=== PATIENT | male | born 1955 | race Caucasian/White ===

== ENCOUNTER 2016-07-11 15:14 | Day surgery (SDC) | payer MEDICARE ==
[2012-02-11 08:09] VITALS: BP 140/79
[~2016-07-11 15:14] MED LIST: DIPRIVAN 200 MG/20 ML IV ONE; Depo-Medrol 40 MG/ML IM ONE; KEFZOL 1 GM/50 ML PREMIX** 1 GM/50 ML IVPB IV ONE; Lactated Ringers 1,000 ML IV ONE; Sensorcaine 0.25% 10 ML IJ ONE; Sodium Chloride 0.9(Preservative Free) 10 ML IJ ONE
--- NOTE | 2016-07-11 17:20 | XRAY ---
19 seconds fluoroscopy time in surgery for Caudal CODEY.
--- NOTE | 2016-07-13 02:59 | XRAY ---
Indication: Caudal epidural steroid injection. Intraoperative fluoroscopy was provided for 19 seconds. A single lateral digital spot image is submitted for interpretation and demonstrates a posterior spinal needle with the tip projected over the expected epidural space just posterior to the mid aspect of the sacrum for epidural steroid injection. Correlate with intraoperative findings/report.
== END 2016-07-11 16:43 | disposition home or self-care (01) ==
LOC: SDC-PAIN 15:14
PROVIDERS: ATTEND Pain Medicine Interventional Pain Medicine
DX: M54.5 Low back pain (principal); M54.16 Radiculopathy, lumbar region; M51.36 Other intervertebral disc degeneration, lumbar region; Z79.891 Long term (current) use of opiate analgesic
CPT/HCPCS: 01992; 62323; 72020; 77003; J0690; J1030; J2704

== ENCOUNTER 2017-05-30 15:44 | Emergency (ER) | payer MEDICARE ==
--- NOTE | 2017-05-30 16:24 | ERPHSYRPT ---
- History of Present Illness Time Seen by Provider: 05/30/17 16:10 Source: patient Exam Limitations: no limitations Patient Subjective Stated Complaint: pt reports becoming lightheaded and feeling like he was going to pass out-evi [id number] pain-denies sob-pt has had similiar episodes in the past- reports bp of 70/45-waited a little bit and retook it with a bp of 60/47 Triage Nursing Assessment: pt arrived to ed pale warm and yie-jwvwv-bkwn of hearing but able to answer questions correctly-resp easy and nonlabored-moving all extremities equally and with ease Physician History: The patient is a 61-year-old male with his and family complaining that he had episodes today of low blood pressure. These low blood pressures were lasting at least 45 minutes. The began when he was sitting down. He denies shortness of breath, chest pain, or nausea. He is now beginning to feel better. Last blood pressure at home was 60/47. The family called his c unix developer, Dr. Correa, who wanted him to come either to [facility] or [place] [facility] for evaluation. The patient has a known cardiac history with coronary artery disease, cardiac stents, and a cardiac pacemaker/defibrillator. The patient had a blood draw this morning at 8:30, 6 hours ago, for pre-op labs. He is to have a cardiac catheterization done next Saturday. The patient also has a past medical history of high blood pressure and depression. Timing/Duration: today, hour(s) (2), sudden, improved Severity: moderate Modifying Factors: Improves With: nothing Associated Symptoms: weakness Allergies/Adverse Reactions: codeine [Codeine] Allergy (Verified 05/30/17 15:58) phenobarbital Allergy (Verified 05/30/17 15:58) Home Medications: Citalopram Hydrobromide [ceLEXa] 40 mg PO DAILY 11/23/15 [History] Carvedilol 3.125 mg [Coreg 3.125 MG] 0.5 tab PO BID 05/25/16 [History] Aspirin 81 gm Chew [Baby Aspirin 81 mg Chew] 81 mg PO DAILY 05/30/17 [ History] Clopidogrel Bisulfate [Clopidogrel] 75 mg PO DAILY 05/30/17 [History] Losartan Potassium [Losartan Potassium] 25 mg PO DAILY 05/30/17 [History] Hx Tetanus, Diphtheria Vaccination/Date Given: Yes Hx Influenza Vaccination/Date Given: No Hx Pneumococcal Vaccination/Date Given: No Immunizations Up to Date: Yes - Review of Systems Constitutional: Weakness Eyes: No Symptoms Ears, Nose, & Throat: No Symptoms Respiratory: No Cough, No Dyspnea Cardiac: No Chest Pain, No Edema, No Syncope Abdominal/Gastrointestinal: No Abdominal Pain, No Nausea, No Vomiting, No Diarrhea Genitourinary Symptoms: No Dysuria Musculoskeletal: No Back Pain, No Neck Pain Skin: No Rash Neurological: No Dizziness, No Focal Weakness, No Sensory Changes Psychological: No Symptoms Endocrine: No Symptoms Hematologic/Lymphatic: No Symptoms Immunological/Allergic: No Symptoms All Other Systems: Reviewed and Negative - Past Medical History Pertinent Past Medical History: Yes Neurological History: TIA ENT History: No Pertinent History Cardiac History: Coronary Artery Disease, High Cholesterol, Hypertension, Myocardial Infarction ([place]) Respiratory History: COPD, Sleep Apnea Endocrine Medical History: No Pertinent History Musculoskeletal History: Degenerative Disk Disease GI Medical History: No Pertinent History History: No Pertinent History Psycho-Social History: Anxiety Male Reproductive Disorders: No Pertinent History Other Medical History: Pacer/Defib - Past Surgical History Past Surgical History: Yes Neuro Surgical History: No Pertinent History Cardiac: Cardiac Catheterization, Cardiac Stent, Internal Defibrillator, Pacemaker Respiratory: No Pertinent History Gastrointestinal: No Pertinent History Genitourinary: No Pertinent History Musculoskeletal: Orthopedic Surgery Male Surgical History: No Pertinent History Other Surgical History: 15 stents placed. Elbow surgery. Tonsillectomy - Social History Smoking Status: Current every day smoker How long have you smoked: 45 Exposure to second hand smoke: No Drug Use: none Patient Lives Alone: No - Nursing Vital Signs Nursing Vital Signs: Initial Vital Signs Temperature 97.1 F 05/30/17 15:51 Pulse Rate 68 05/30/17 15:51 Respiratory Rate 18 05/30/17 15:51 Blood Pressure 114/56 05/30/17 15:51 O2 Sat by Pulse Oximetry 99 05/30/17 15:51 Pain Scale Pain Intensity 0 - Physical Exam General Appearance: no apparent distress, alert Eye Exam: PERRL/EOMI, eyes nml inspection Ears, Nose, Throat Exam: normal ENT inspection, TMs normal, pharynx normal, moist mucous membranes Neck Exam: normal inspection, non-tender, supple, full range of motion Respiratory Exam: normal breath sounds, lungs clear, No respiratory distress Cardiovascular Exam: regular rate/rhythm, normal heart sounds, normal peripheral pulses Gastrointestinal/Abdomen Exam: soft, normal bowel sounds, No tenderness, No mass Rectal Exam: not done Back Exam: normal inspection, normal range of motion, No CVA tenderness, No vertebral tenderness Extremity Exam: normal inspection, normal range of motion, pelvis stable Neurologic Exam: alert, oriented x 3, cooperative, normal mood/affect, nml cerebellar function, nml station & gait, sensation nml, No motor deficits Skin Exam: normal color, warm, dry, No rash Lymphatic Exam: No adenopathy SpO2 Interpretation: normal SpO2: 99 Oxygen Delivery: Room Air - Course EKG Interpreted by Me: RATE, Sinus Rhythm, NORMAL INTERVALS, NORMAL QRS, ST Elev (V1,V2), Other (no pacer spikes seen on EKG, Pacer spikes seen on previous EKG dated 02/11/12.) - Radiology Exams Chest X-ray Interpretation: Reviewed by me, Teleradiologist Report, Negative (stable nonacute chest per Dr Loo.) Ordered Tests: Active Orders 24 hr Category Date Time Status EKG-ER Only STAT Care 05/30/17 16:34 Active IV Insertion STAT Care 05/30/17 16:34 Active Pulse Oximetry (ED) STAT Care 05/30/17 16:34 Active CHEST 2 VIEWS (PA AND LAT) Stat Exams 05/30/17 16:34 Completed CBC W DIFF Stat Lab 05/30/17 16:56 Completed CMP Stat Lab 05/30/17 16:56 Completed NT PRO BNP Stat Lab 05/30/17 16:56 Completed PROTIME WITH INR Stat Lab 05/30/17 16:56 Completed PTT Stat Lab 05/30/17 16:56 Completed TROPONIN Q3H Lab 05/30/17 16:56 Completed TROPONIN Q3H Lab 05/30/17 19:45 Ordered TROPONIN Q3H Lab 05/30/17 22:45 Ordered TROPONIN Q3H Lab 05/31/17 01:45 Ordered TROPONIN Q3H Lab 05/31/17 04:45 Ordered Medication Summary Discontinued Medications Generic Name Dose Route Start Last Admin Trade Name Freq PRN Reason Stop Dose Admin Aspirin 324 mg 05/30/17 16:34 05/30/17 16:49 Baby Aspirin 81 Mg Chew PO 05/30/17 16:35 324 mg STAT ONE Administration Aspirin Confirm 05/30/17 16:42 Baby Aspirin 81 Mg Chew Administered 05/30/17 16:43 Dose 243 mg .ROUTE .STK-MED ONE Sodium Chloride 1,000 mls @ 999 mls/hr 05/30/17 16:34 05/30/17 16:50 Sodium Chloride 0.9% 1000 Ml IV 05/30/17 17:34 999 mls/hr .Q1H1M STA Administration Sodium Chloride Confirm 05/30/17 16:42 Sodium Chloride 0.9% 1000 Ml Administered 05/30/17 16:43 Dose 1,000 mls @ ud .ROUTE .STK-MED ONE Lab/Rad Data: Laboratory Result Diagrams 05/30/17 16:56 05/30/17 16:56 Laboratory Results 05/30/17 05/30/17 05/30/17 Range/Units 16:56 16:56 16:56 WBC (4.0-10.5) K/mm3 RBC (4.1-5.6) M/mm3 Hgb (12.5-18.0) gm/dl Hct (42-50) % MCV (78-100) fl MCH (26-32) pg MCHC (32-36) g/dl RDW (11.5-14.0) % Plt Count (150-450) K/mm3 MPV (6-9.5) fl Gran % (36.0-66.0) % Eos # (Auto) (0-0.5) Absolute Lymphs (auto) (1.0-4.6) Absolute Monos (auto) (0.0-1.3) Lymphocytes % (24.0-44.0) % Monocytes % (0.0-12.0) % Eosinophils % (0.00-5.0) % Basophils % (0.0-0.4) % Absolute Granulocytes (1.4-6.9) Basophils # (0-0.4) PT 12.5 (8.83-12.87) SECONDS INR 1.12 (0.8-3.0) APTT 30.0 (24.1-36.1) SECONDS Sodium 126 L (137-145) mmol/L Potassium 4.2 (3.5-5.1) mmol/L Chloride 91 L (98-107) mmol/L Carbon Dioxide 26 (22-30) mmol/L Anion Gap 14.1 (5-15) MEQ/L BUN 11 (9-20) mg/dL Creatinine 0.90 (0.66-1.25) mg/dL Estimated GFR > 60.0 ML/MIN Glucose 123 H (74-106) mg/dL Calcium 9.2 (8.4-10.2) mg/dL Total Bilirubin 0.40 (0.2-1.3) mg/dL AST 15 L (17-59) U/L ALT 10 (0-50) U/L Alkaline Phosphatase 69 (38-126) U/L Troponin I < 0.012 (0.000-0.034) ng/mL NT-Pro-B Natriuret Pep 142 (0-900) pg/mL Serum Total Protein 7.0 (6.3-8.2) g/dL Albumin 4.0 (3.5-5.0) g/dL 05/30/17 Range/Units 16:56 WBC 9.3 (4.0-10.5) K/mm3 RBC 4.10 (4.1-5.6) M/mm3 Hgb 12.4 L (12.5-18.0) gm/dl Hct 36.5 L (42-50) % MCV 89.0 (78-100) fl MCH 30.2 (26-32) pg MCHC 34.0 (32-36) g/dl RDW 14.3 H (11.5-14.0) % Plt Count 307 (150-450) K/mm3 MPV 8.8 (6-9.5) fl Gran % 76.7 H (36.0-66.0) % Eos # (Auto) 0.10 (0-0.5) Absolute Lymphs (auto) 1.36 (1.0-4.6) Absolute Monos (auto) 0.69 (0.0-1.3) Lymphocytes % 14.6 L (24.0-44.0) % Monocytes % 7.4 (0.0-12.0) % Eosinophils % 1.1 (0.00-5.0) % Basophils % 0.2 (0.0-0.4) % Absolute Granulocytes 7.13 H (1.4-6.9) Basophils # 0.02 (0-0.4) PT (8.83-12.87) SECONDS INR (0.8-3.0) APTT (24.1-36.1) SECONDS Sodium (137-145) mmol/L Potassium (3.5-5.1) mmol/L Chloride (98-107) mmol/L Carbon Dioxide (22-30) mmol/L Anion Gap (5-15) MEQ/L BUN (9-20) mg/dL Creatinine (0.66-1.25) mg/dL Estimated GFR ML/MIN Glucose (74-106) mg/dL Calcium (8.4-10.2) mg/dL Total Bilirubin (0.2-1.3) mg/dL AST (17-59) U/L ALT (0-50) U/L Alkaline Phosphatase (38-126) U/L Troponin I (0.000-0.034) ng/mL NT-Pro-B Natriuret Pep (0-900) pg/mL Serum Total Protein (6.3-8.2) g/dL Albumin (3.5-5.0) g/dL - Progress Progress: improved Progress Note: 05/30/17 17:57 After NS 1 L by IV, pt is feeling much better and BP is 130/72. I discussed pt with Dr Mckeon who is nutrition faculty member for Dr Ho. Dr Mckeon states that the cardiac pacer is set to pace rhythm goes below [address] Mckeon also states that the NS will help with the mild hyponatremia. Pt is to call Dr Correa in the morning and see him tomorrow. Discussed with Dr.: Other (Dr Mckeon) Counseled pt/family regarding: lab results, diagnosis, need for follow-up, rad results - Departure Time of Disposition: 18:00 Departure Disposition: Home Clinical Impression: Dehydration with hyponatremia Condition: Stable Critical Care Time: No Referrals: LUIS ASHER [Primary Care Provider] - Additional Instructions: You had dehydration, low blood pressure, and mildly low serum sodium. You were given normal saline fluids by IV and aspirin 252 mg orally in the ER. Dr Mckeon was consulted and he recommends that you call Dr. Correa tomorrow morning and see him tomorrow.
[2017-05-30] MEDS ORDERED: Sodium Chloride 0.9% 1000 ML 1,000 ML IV STA (16:34)
[2017-05-30] MEDS ORDERED: BABY ASPIRIN 81 MG CHEW PO ONE (16:34)
[2017-05-30] MEDS ORDERED: BABY ASPIRIN 81 MG CHEW ONE (16:42)
[2017-05-30] MEDS ORDERED: Sodium Chloride 0.9% 1000 ML 1,000 ML ONE (16:42)
--- NOTE | 2017-05-30 16:57 | XRAY ---
Indication: Low blood pressure. Comparison: CTA chest May 06, 2017. PA/lateral chest demonstrates stable right lower lobe noncalcified micronodule. Again no focal infiltrate, consolidation, or large effusion. Heart is not enlarged with stable left-sided AICD. Bony thorax intact again with old left lower rib fractures. Impression: Stable nonacute chest with chronic features.
[2017-05-30 16:58] LABS: BASOPHIL % 0.2 % (0.0-0.4); Basophil (Absolute #) 0.02 (0-0.4); Eosinophil % 1.1 % (0.00-5.0); Granulocyte Absolute (ANC) 7.13 (1.4-6.9); Granulocytes % 76.7 % (36.0-66.0); Hematocrit 36.5 % (42-50); Hemoglobin 12.4 gm/dl (12.5-18.0); Lymphocyte (Absolute #) 1.36 (1.0-4.6); Lymphocytes % 14.6 % (24.0-44.0); Mean Corpuscular Hemoglobin 30.2 pg (26-32); Mean Platelet Volume 8.8 fl (6-9.5); Monocyte (Absolute #) 0.69 (0.0-1.3); Monocytes % 7.4 % (0.0-12.0); Platelet Count 307 K/mm3 (150-450); Red Cell Distribution Width 14.3 % (11.5-14.0); White Blood Count 9.3 K/mm3 (4.0-10.5)
[2017-05-30 17:06] LABS: INR 1.12 (0.8-3.0)
[2017-05-30 17:10] LABS: ALKALINE PHOSPHATASE 69 U/L (38-126); ANION GAP 14.1 MEQ/L (5-15); BLOOD UREA NITROGEN 11 mg/dL (9-20); CHLORIDE 91 mmol/L (98-107); Calcium 9.2 mg/dL (8.4-10.2); Carbon Dioxide 26 mmol/L (22-30); Glucose 123 mg/dL (74-106); Potassium 4.2 mmol/L (3.5-5.1); SGOT/AST 15 U/L (17-59); SGPT/ALT 10 U/L (0-50); SODIUM 126 mmol/L (137-145)
[2017-05-30 17:19] LABS: NT PRO BNP 142 pg/mL (0-900)
[2017-05-30 18:31] VITALS: BP 140/89; PULSE 70; O2SAT 97
== END 2017-05-30 18:30 | disposition home or self-care (01) ==
LOC: ED 15:44
DX: E86.0 Dehydration (principal); E87.1 Hypo-osmolality and hyponatremia; I10 Essential (primary) hypertension; F32.9 Major depressive disorder, single episode, unspecified; Z79.899 Other long term (current) drug therapy; Z98.61 Coronary angioplasty status; Z95.0 Presence of cardiac pacemaker; I25.10 Atherosclerotic heart disease of native coronary artery without angina pectoris; R53.1 Weakness; E78.00 Pure hypercholesterolemia, unspecified; I25.2 Old myocardial infarction; Z86.73 Personal history of transient ischemic attack (TIA), and cerebral infarction without residual deficits
CPT/HCPCS: 36000; 36415; 71046; 80048; 80053; 83880; 84484; 85025; 85610; 85730; 93005; 96360; 99284; A9270-GY

== ENCOUNTER 2018-05-19 15:09 | Emergency (ER) | payer MEDICARE ==
[2018-05-19 15:19] VITALS: BP 181/120; PULSE 110
[2018-05-19] MEDS ORDERED: BABY ASPIRIN 81 MG CHEW PO ONE (15:28)
[2018-05-19] MEDS ORDERED: Zofran 4 MG/2 ML VIAL IV ONE (15:28)
[2018-05-19] MEDS ORDERED: Ntg 0.2MG/Ml in D5W GLASS*** 250 ML IV PRN (15:28)
[2018-05-19] MEDS ORDERED: MORPHINE SULFATE 4 MG INJ IV ONE (15:28)
[2018-05-19] MEDS ORDERED: Sodium Chloride 0.9% 1000 ML 1,000 ML IV SCH (15:30)
[2018-05-19 15:35] LABS: BASOPHIL % 0.2 % (0.0-0.4); Basophil (Absolute #) 0.02 (0-0.4); Eosinophil % 1.1 % (0.00-5.0); Eosinophil (Absolute #) 0.12 (0-0.5); Granulocyte Absolute (ANC) 7.29 (1.4-6.9); Granulocytes % 67.1 % (36.0-66.0); Hematocrit 44.8 % (42-50); Lymphocyte (Absolute #) 2.43 (1.0-4.6); Lymphocytes % 22.4 % (24.0-44.0); Mean Cell Volume 91.2 fl (78-100); Mean Corpuscular Hemoglobin 30.5 pg (26-32); Mean Corpuscular Hgb Concent. 33.5 g/dl (32-36); Mean Platelet Volume 9.5 fl (6-9.5); Monocytes % 9.2 % (0.0-12.0); Platelet Count 298 K/mm3 (150-450); Red Blood Count 4.91 M/mm3 (4.1-5.6); Red Cell Distribution Width 14.7 % (11.5-14.0); White Blood Count 10.9 K/mm3 (4.0-10.5)
--- NOTE | 2018-05-19 15:35 | ERPHSYRPT ---
- History of Present Illness Time Seen by Provider: 05/19/18 15:30 Historian: patient Exam Limitations: no limitations Patient Subjective Stated Complaint: Pt states "I am having horrible chest pain. It started this morning, I took 4 nitro and it did not help. " Triage Nursing Assessment: PT alert and oriented X 3, skin pwd. PT ambulates with a slow shuffling gait, able to speak in clear full sentences. PT slightly tachypneic, holding onto his chest. Physician History: 62-year-old white male with history of coronary artery disease, TIA, hyperlipidemia, high blood pressure, myocardial infarction, COPD, sleep apnea, degenerative disc disease, anxiety who has had CABG and multiple cardiac stents. Patient arrives with complaint of pain in the anterior and left chest symptoms since 11:00 described as someone sitting on my chest associated with shortness of breath nausea onset since 11:00 this morning. Patient states he has taken 4 aspirin without relief. Pain is not worse with breathing. Past medical history includes TIA, coronary artery disease, hyperlipidemia, high blood pressure, myocardial infarction, COPD, sleep apnea, degenerative disc disease, anxiety. Past surgical history includes cardiac catheter, cardiac stent, internal defibrillator, pacer, orthopedic surgery, 15 stents placed, elbow surgery, tonsillectomy. Social history positive for tobacco use positive of for occasional marijuana use. Timing/Duration: today (11:00 today) Activities at Onset: none Quality: other (feels like someone sitting on chesrt) Location: substernal, other (Substernal and left chest) Chest Pain Radiation: no radiation Severity of Pain-Max: moderate Severity of Pain-Current: moderate Modifying Factors: Improves With: nitroglycerin Associated Symptoms: nausea, shortness of breath, No vomiting, No palpitations, No heartburn, No cough, No hurts to breathe, No diaphoresis, No chills, No fever , No fatigue, No weakness, No swelling/lump in chest, No syncope, No rash, No headache, No dizziness, No edema, No back pain Prior Chest Pain/Cardiac Workup: cardiac cath, heart attack, pulmonary embolism Nitro Today/Relief: 0.4 mg x 4 Aspirin Treatment Today: 81 mg x 4, provided by ED Allergies/Adverse Reactions: codeine [Codeine] Allergy (Verified 05/30/17 15:58) phenobarbital Allergy (Verified 05/30/17 15:58) Home Medications: Carvedilol 3.125 mg [Coreg 3.125 MG] 0.5 tab PO BID 05/25/16 [History] Losartan Potassium 25 mg PO DAILY 05/30/17 [History] Atorvastatin Calcium [Lipitor] 40 mg PO DAILY 05/19/18 [History] Gabapentin 100 mg PO TID 05/19/18 [History] Hx Tetanus, Diphtheria Vaccination/Date Given: Yes Hx Influenza Vaccination/Date Given: No Hx Pneumococcal Vaccination/Date Given: No Immunizations Up to Date: Yes - Review of Systems Constitutional: No Fever, No Chills Eyes: No Symptoms Ears, Nose, & Throat: No Symptoms Respiratory: No Cough Cardiac: Chest Pain Abdominal/Gastrointestinal: Nausea, No Abdominal Pain, No Vomiting, No Diarrhea , No Constipation, No Hematemesis, No Hematochezia, No Melena, No Dysphagia Genitourinary Symptoms: No Dysuria Musculoskeletal: No Back Pain, No Neck Pain Skin: No Rash Neurological: No Dizziness, No Focal Weakness, No Sensory Changes Psychological: No Symptoms Endocrine: No Symptoms All Other Systems: Reviewed and Negative - Past Medical History Pertinent Past Medical History: Yes Neurological History: TIA ENT History: No Pertinent History Cardiac History: Coronary Artery Disease, High Cholesterol, Hypertension, Myocardial Infarction ([place]) Respiratory History: COPD, Sleep Apnea Endocrine Medical History: No Pertinent History Musculoskeletal History: Degenerative Disk Disease GI Medical History: No Pertinent History History: No Pertinent History Psycho-Social History: Anxiety Male Reproductive Disorders: No Pertinent History Other Medical History: Pacer/Defib - Past Surgical History Past Surgical History: Yes Neuro Surgical History: No Pertinent History Cardiac: Cardiac Catheterization, Cardiac Stent, Internal Defibrillator, Pacemaker Respiratory: No Pertinent History Gastrointestinal: No Pertinent History Genitourinary: No Pertinent History Musculoskeletal: Orthopedic Surgery Male Surgical History: No Pertinent History Other Surgical History: 15 stents placed. Elbow surgery. Tonsillectomy. CABG - Social History Smoking Status: Current every day smoker How long have you smoked: years Exposure to second hand smoke: Yes Drug Use: none Patient Lives Alone: No - Nursing Vital Signs Nursing Vital Signs: Initial Vital Signs Temperature 98.2 F 05/19/18 15:10 Pulse Rate 112 H 05/19/18 15:10 Respiratory Rate 20 05/19/18 15:10 Blood Pressure 181/120 05/19/18 15:10 O2 Sat by Pulse Oximetry 96 05/19/18 15:10 Pain Scale Pain Intensity 4 - Physical Exam General Appearance: moderate distress, other (WELL_DEVELOPED WHITE MALE DIAPHORETIC) Eye Exam: PERRL/EOMI, eyes nml inspection Ears, Nose, Throat Exam: normal ENT inspection, moist mucous membranes Neck Exam: normal inspection, non-tender, supple, full range of motion Respiratory Exam: normal breath sounds, lungs clear, No respiratory distress Cardiovascular Exam: regular rate/rhythm, normal heart sounds, capillary refill <2 sec Gastrointestinal/Abdomen Exam: soft, No tenderness, No mass Back Exam: normal inspection, No CVA tenderness, No vertebral tenderness Extremity Exam: normal inspection, normal range of motion Neurologic Exam: alert, oriented x 3, cooperative, program evaluation consultant II-XII nml as tested, normal mood/affect, sensation nml, No motor deficits Skin Exam: normal color, warm, dry SpO2 Interpretation: normal ((^%) SpO2: 96 - Course Nursing assessment & vital signs reviewed: Yes EKG Interpreted by Me: RATE (111 BPM), Sinus Tach, Other (sinus tacchycardia, st elevation v1. v2, v3 acute NV) - Radiology Exams Chest X-ray Interpretation: Discussed w/ radiologist (chest x-ray: Portable chest remains clear. Heart is not enlarged, again with CABG surgery and left sided AICD> Bony thorax intact. No new/acute findings) Ordered Tests: Active Orders 24 hr Category Date Time Status Cap Sewer STAT Care 05/19/18 15:28 Active EKG-ER Only STAT Care 05/19/18 15:28 Active IV Insertion STAT Care 05/19/18 15:28 Active Pulse Oximetry (ED) STAT Care 05/19/18 15:28 Active CHEST 1 VIEW (PORTABLE) Stat Exams 05/19/18 15:39 Completed CBC W DIFF Stat Lab 05/19/18 15:28 Completed CMP Stat Lab 05/19/18 15:30 Completed D-DIMER QUANTITATION Stat Lab 05/19/18 15:30 Completed PROTIME WITH INR Stat Lab 05/19/18 15:30 Completed PTT Stat Lab 05/19/18 15:30 Completed TROPONIN Q3H Lab 05/19/18 15:30 Completed Medication Summary Discontinued Medications Generic Name Dose Route Start Last Admin Trade Name Freq PRN Reason Stop Dose Admin Aspirin 324 mg 05/19/18 15:28 05/19/18 15:54 Baby Aspirin 81 Mg Chew PO 05/19/18 15:29 324 mg STAT ONE Administration Aspirin Confirm 05/19/18 15:42 Baby Aspirin 81 Mg Chew Administered 05/19/18 15:43 Dose 324 mg .ROUTE .STK-MED ONE Nitroglycerin/Dextrose 250 mls @ 1.5 mls/hr 05/19/18 15:28 05/19/18 15:45 Ntg 0.2mg/Ml In D5w Glass IV 06/18/18 15:27 5 mcg/min .Q24H PRN 1.5 mls/hr CHEST PAIN Administration Protocol 5 MCG/MIN Sodium Chloride 1,000 mls @ 50 mls/hr 05/19/18 15:30 05/19/18 15:51 Sodium Chloride 0.9% 1000 Ml IV 06/18/18 15:29 50 mls/hr .Q20H ZACHARY Administration Nitroglycerin/Dextrose Confirm 05/19/18 15:42 Ntg 0.2mg/Ml In D5w Glass Administered 05/19/18 15:43 Dose 250 mls @ ud IV .STK-MED ONE Sodium Chloride Confirm 05/19/18 15:42 Sodium Chloride 0.9% 1000 Ml Administered 05/19/18 15:43 Dose 1,000 mls @ ud .ROUTE .STK-MED ONE Morphine Sulfate 4 mg 05/19/18 15:28 05/19/18 15:50 Morphine Sulfate 4 Mg Inj IV 05/19/18 15:29 4 mg STAT ONE Administration Morphine Sulfate Confirm 05/19/18 15:42 Morphine Sulfate 4 Mg Inj Administered 05/19/18 15:43 Dose 4 mg .ROUTE .STK-MED ONE Ondansetron HCl 4 mg 05/19/18 15:28 05/19/18 15:49 Zofran 4 Mg/2 Ml Vial IV 05/19/18 15:29 4 mg STAT ONE Administration Ondansetron HCl Confirm 05/19/18 15:42 Zofran 4 Mg/2 Ml Vial Administered 05/19/18 15:43 Dose 4 mg .ROUTE .STK-MED ONE Lab/Rad Data: Laboratory Result Diagrams 05/19/18 15:28 05/19/18 15:30 Laboratory Results 05/19/18 05/19/18 05/19/18 Range/Units 15:30 15:30 15:30 WBC (4.0-10.5) K/mm3 RBC (4.1-5.6) M/mm3 Hgb (12.5-18.0) gm/dl Hct (42-50) % MCV (78-100) fl MCH (26-32) pg MCHC (32-36) g/dl RDW (11.5-14.0) % Plt Count (150-450) K/mm3 MPV (6-9.5) fl Gran % (36.0-66.0) % Eos # (Auto) (0-0.5) Absolute Lymphs (auto) (1.0-4.6) Absolute Monos (auto) (0.0-1.3) Lymphocytes % (24.0-44.0) % Monocytes % (0.0-12.0) % Eosinophils % (0.00-5.0) % Basophils % (0.0-0.4) % Absolute Granulocytes (1.4-6.9) Basophils # (0-0.4) PT 12.0 (8.83-12.87) SECONDS INR 1.03 (0.8-3.0) APTT 29.1 (24.1-36.1) SECONDS D-Dimer 1699 H* (215-500) ng/mL Sodium 136 L (137-145) mmol/L Potassium 4.0 (3.5-5.1) mmol/L Chloride 99 (98-107) mmol/L Carbon Dioxide 25 (22-30) mmol/L Anion Gap 15.2 H (5-15) MEQ/L BUN 15 (9-20) mg/dL Creatinine 1.11 (0.66-1.25) mg/dL Estimated GFR > 60.0 ML/MIN Glucose 131 H (74-106) mg/dL Calcium 9.9 (8.4-10.2) mg/dL Total Bilirubin 0.50 (0.2-1.3) mg/dL AST 20 (17-59) U/L ALT 16 (0-50) U/L Alkaline Phosphatase 76 (38-126) U/L Troponin I 0.046 H* (0.000-0.034) ng/mL Serum Total Protein 8.6 H (6.3-8.2) g/dL Albumin 4.7 (3.5-5.0) g/dL 05/19/18 Range/Units 15:28 WBC 10.9 H (4.0-10.5) K/mm3 RBC 4.91 (4.1-5.6) M/mm3 Hgb 15.0 (12.5-18.0) gm/dl Hct 44.8 (42-50) % MCV 91.2 (78-100) fl MCH 30.5 (26-32) pg MCHC 33.5 (32-36) g/dl RDW 14.7 H (11.5-14.0) % Plt Count 298 (150-450) K/mm3 MPV 9.5 (6-9.5) fl Gran % 67.1 H (36.0-66.0) % Eos # (Auto) 0.12 (0-0.5) Absolute Lymphs (auto) 2.43 (1.0-4.6) Absolute Monos (auto) 1.00 (0.0-1.3) Lymphocytes % 22.4 L (24.0-44.0) % Monocytes % 9.2 (0.0-12.0) % Eosinophils % 1.1 (0.00-5.0) % Basophils % 0.2 (0.0-0.4) % Absolute Granulocytes 7.29 H (1.4-6.9) Basophils # 0.02 (0-0.4) PT (8.83-12.87) SECONDS INR (0.8-3.0) APTT (24.1-36.1) SECONDS D-Dimer (215-500) ng/mL Sodium (137-145) mmol/L Potassium (3.5-5.1) mmol/L Chloride (98-107) mmol/L Carbon Dioxide (22-30) mmol/L Anion Gap (5-15) MEQ/L BUN (9-20) mg/dL Creatinine (0.66-1.25) mg/dL Estimated GFR ML/MIN Glucose (74-106) mg/dL Calcium (8.4-10.2) mg/dL Total Bilirubin (0.2-1.3) mg/dL AST (17-59) U/L ALT (0-50) U/L Alkaline Phosphatase (38-126) U/L Troponin I (0.000-0.034) ng/mL Serum Total Protein (6.3-8.2) g/dL Albumin (3.5-5.0) g/dL - Progress Progress: improved Air Movement: fair Progress Note: 05/19/18 20:39 62-year-old white male arrives with complaint of pain in his anterior chest shortness of breath symptoms since 11:00 this morning. Patient with ST elevation in V1, V2 V3. Patient's case is discussed with Dr. Bonds at [facility] patient transferred to [facility]. Patient was given IV nitro drip, also given morphine 4 mg IV, Zofran 4 mg IV, aspirin 324 mg by mouth. Patient blood pressure was elevated. - Departure Departure Disposition: Transfer ([facility]) Clinical Impression: Chest pain Qualifiers: Chest pain type: chest pain due to myocardial ischemia Ischemic chest pain type : unspecified angina pectoris type Qualified Code(s): I25.9 - Chronic ischemic heart disease, unspecified Myocardial infarction Qualifiers: Myocardial infarction type: unspecified Involved coronary artery: unspecified coronary artery Qualified Code(s): I21.9 - Acute myocardial infarction, unspecified Condition: Fair Critical Care Time: No Referrals: DOCTOR,NO FAMILY [Primary Care Provider] -
[2018-05-19] MEDS ORDERED: MORPHINE SULFATE 4 MG INJ ONE (15:42)
[2018-05-19] MEDS ORDERED: Zofran 4 MG/2 ML VIAL ONE (15:42)
[2018-05-19] MEDS ORDERED: BABY ASPIRIN 81 MG CHEW ONE (15:42)
[2018-05-19] MEDS ORDERED: Sodium Chloride 0.9% 1000 ML 1,000 ML ONE (15:42)
[2018-05-19] MEDS ORDERED: Ntg 0.2MG/Ml in D5W GLASS*** 250 ML IV ONE (15:42)
[2018-05-19 15:49] LABS: ALBUMIN 4.7 g/dL (3.5-5.0); ALKALINE PHOSPHATASE 76 U/L (38-126); ANION GAP 15.2 MEQ/L (5-15); BLOOD UREA NITROGEN 15 mg/dL (9-20); CHLORIDE 99 mmol/L (98-107); Calcium 9.9 mg/dL (8.4-10.2); Carbon Dioxide 25 mmol/L (22-30); Creatinine 1 1.11 mg/dL (0.66-1.25); Glucose 131 mg/dL (74-106); SGOT/AST 20 U/L (17-59); SGPT/ALT 16 U/L (0-50); SODIUM 136 mmol/L (137-145); Total Protein 8.6 g/dL (6.3-8.2)
[2018-05-19 15:52] LABS: INR 1.03 (0.8-3.0)
[2018-05-19 15:55] LABS: PTT 29.1 SECONDS (24.1-36.1)
--- NOTE | 2018-05-19 16:07 | XRAY ---
Indication: Left-sided chest pain. Comparison: May 30, 2017. Portable chest remains clear. Heart is not enlarged again with CABG surgery and left-sided AICD. Bony thorax intact. No new/acute findings.
[2018-05-19 20:42] VITALS: O2SAT 96
== END 2018-05-19 16:20 | disposition short-term general hospital (02) ==
LOC: ED 15:09
DX: I25.9 Chronic ischemic heart disease, unspecified (principal); I21.9 Acute myocardial infarction, unspecified; Z79.899 Other long term (current) drug therapy; Z86.73 Personal history of transient ischemic attack (TIA), and cerebral infarction without residual deficits; I10 Essential (primary) hypertension; E78.00 Pure hypercholesterolemia, unspecified; I25.810 Atherosclerosis of coronary artery bypass graft(s) without angina pectoris; I25.2 Old myocardial infarction; F41.9 Anxiety disorder, unspecified; Z95.810 Presence of automatic (implantable) cardiac defibrillator
CPT/HCPCS: 36000; 36415; 71045; 80053; 84484; 85025; 85379; 85610; 85730; 93005; 93041; 96365; 96374; 96375; 99285; 99291; G0463; J2270; J2405; A9270-GY

== ENCOUNTER 2021-09-25 11:35 | Emergency (ER) | payer MEDICARE ==
--- NOTE | 2021-09-25 11:47 | ERPHSYRPT ---
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 He has been taking his medication as he is supposed to. He does not have chest pain. He denies shortness of breath. He has no flulike symptoms. He did not hit his head. Patient's daughter took his blood pressure at home and the blood pressure was low. When he arrived to the emergency department, his systolic blood pressure was 91. His room air oxygenation is normal. His heart rate was in the 60s. Patient has a history of gastroesophageal reflux disease, coronary artery disease, hyperlipidemia and hypertension. He is on Plavix daily. Timing/Duration: today Severity: mild Character of Deficits: none Deficits: no difficulties Baseline/Normal Cognition: alert oriented x 3 Current Cognition: alert oriented x 3 Baseline Gait: walks w/o assistance Associated Symptoms: denies symptoms Allergies/Adverse Reactions: codeine [Codeine] Allergy (Verified 05/30/17 15:58) phenobarbital Allergy (Verified 05/30/17 15:58) Home Medications: Carvedilol 3.125 mg [Coreg 3.125 MG] 6.25 tab PO BID 05/25/16 [History] Atorvastatin Calcium [Lipitor] 40 mg PO DAILY 05/19/18 [History] Clopidogrel Bisulfate [PLAVIX Tablet] 75 mg PO DAILY 09/25/21 [History] Isosorbide Mononitrate 30 mg [Imdur 30 MG] 1 ea DAILY 09/25/21 [History] PANTOPRAZOLE 40 mg Tablet [Protonix 40MG Tablet] 40 mg PO QAM 09/25/21 [History] Hx Tetanus, Diphtheria Vaccination/Date Given: Yes Hx Influenza Vaccination/Date Given: No Hx Pneumococcal Vaccination/Date Given: No Travel Risk - International Travel Have you traveled outside of the country in past 3 weeks: No - Coronavirus Screening Are you exhibiting any of the following symptoms?: No Close contact with a COVID-19 positive Pt in past 14-21 Days: No - Review of Systems Constitutional: No Symptoms Eyes: No Symptoms Ears, Nose, & Throat: No Symptoms Respiratory: No Symptoms Cardiac: No Symptoms Abdominal/Gastrointestinal: No Symptoms Genitourinary Symptoms: No Symptoms Musculoskeletal: No Symptoms Skin: Other (Diaphoresis) Neurological: Dizziness Psychological: No Symptoms Endocrine: No Symptoms Hematologic/Lymphatic: No Symptoms Immunological/Allergic: No Symptoms All Other Systems: Reviewed and Negative - Past Medical History Pertinent Past Medical History: Yes Neurological History: TIA ENT History: No Pertinent History Cardiac History: Coronary Artery Disease, High Cholesterol, Hypertension, Myocardial Infarction (MS) Respiratory History: COPD, Sleep Apnea Endocrine Medical History: No Pertinent History Musculoskeletal History: Degenerative Disk Disease GI Medical History: No Pertinent History History: No Pertinent History Psycho-Social History: Anxiety Male Reproductive Disorders: No Pertinent History Other Medical History: Pacer/Defib - Past Surgical History Past Surgical History: Yes Neuro Surgical History: No Pertinent History Cardiac: Cardiac Catheterization, Cardiac Stent, Internal Defibrillator, Pacemaker Respiratory: No Pertinent History Gastrointestinal: No Pertinent History Genitourinary: No Pertinent History Musculoskeletal: Orthopedic Surgery Male Surgical History: No Pertinent History Other Surgical History: 15 stents placed. Elbow surgery. Tonsillectomy. CABG - Social History Smoking Status: Current every day smoker How long have you smoked: years Exposure to second hand smoke: Yes Drug Use: none Patient Lives Alone: No - Nursing Vital Signs Nursing Vital Signs: Initial Vital Signs O2 Sat by Pulse Oximetry 97 09/25/21 12:01 Pain Scale Pain Intensity 0 - [place] Coma Scale Best Eye Response ([place]): (4) open spontaneously Best Verbal Response ([place]): (5) oriented Best Motor Response ([place]): (6) obeys commands [place] Total: 15 - Physical Exam General Appearance: no apparent distress, alert, anxiety Eye Exam: bilateral eye: normal inspection, PERRL, EOMI Ears, Nose, Throat Exam: normal ENT inspection, moist mucous membranes Neck Exam: normal inspection, non-tender, supple, full range of motion Respiratory: normal breath sounds, lungs clear, airway intact, No chest tenderness, No respiratory distress Cardiovascular: regular rate/rhythm, normal heart sounds, normal peripheral pulses Gastrointestinal: soft, normal bowel sounds, No tenderness Rectal Exam: not done Back Exam: normal inspection, normal range of motion, No CVA tenderness Extremity Exam: normal inspection, normal range of motion, pelvis stable Mental Status: alert, oriented x 3, cooperative cutter banana room Exam: normal hearing, normal speech, PERRL Coordination/Gait: normal finger to nose, normal gait, normal cerebellar function Motor/Sensory: no motor deficit, no sensory deficit, no pronator drift Skin Exam: normal color, warm, dry SpO2 Interpretation: normal O2 Delivery: Room Air - Course Nursing assessment & vital signs reviewed: Yes EKG Interpreted by Me: RATE (64), Sinus Rhythm, NORMAL AXIS, NORMAL INTERVALS, NORMAL QRS, NORMAL ST-T, Other (No significant change from EKG dated 05/19/2018.) Ordered Tests: Active Orders 24 hr Category Date Time Status General Intern STAT Care 09/25/21 11:52 Active EKG-ER Only STAT Care 09/25/21 11:52 Active IV Insertion STAT Care 09/25/21 11:52 Active Pulse Oximetry (ED) STAT Care 09/25/21 11:52 Active CHEST WITH CONTRAST [CT] Stat Exams 09/25/21 12:38 Completed HEAD WITHOUT CONTRAST [CT] Stat Exams 09/25/21 11:53 Completed CBC W DIFF Stat Lab 09/25/21 11:45 Completed CMP Stat Lab 09/25/21 11:45 Completed D-DIMER QUANTITATIVE Stat Lab 09/25/21 11:45 Completed MAGNESIUM Stat Lab 09/25/21 11:45 Completed NT PRO BNP Stat Lab 09/25/21 11:45 Completed PROTIME WITH INR Stat Lab 09/25/21 11:45 Completed TROPONIN Q4H Lab 09/25/21 12:45 Completed TROPONIN Q4H Lab 09/25/21 16:45 Ordered TROPONIN Q4H Lab 09/25/21 20:45 Ordered UA W/RFX CULTURE Stat Lab 09/25/21 15:28 Completed Medication Summary Discontinued Medications Generic Name Dose Route Start Last Admin Trade Name Harveyq PRN Reason Stop Dose Admin Potassium Chloride/Sodium Chloride Confirm 09/25/21 12:07 Sodium Chloride 0.9% W/ 20 Meq Kcl/Liter Administered 09/25/21 12:08 Dose 1,000 mls @ ud IV .STK-MED ONE Sodium Chloride Confirm 09/25/21 12:08 Sodium Chloride 0.9% 1000 Ml Administered 09/25/21 12:09 Dose 1,000 mls @ ud .ROUTE .STK-MED ONE Sodium Chloride 500 mls @ 500 mls/hr 09/25/21 12:12 09/25/21 13:36 Sodium Chloride 0.9% 500 Ml IV 09/25/21 13:11 Infused .Q1H ONE Infusion Sodium Chloride Confirm 09/25/21 12:15 Sodium Chloride 0.9% 500 Ml Administered 09/25/21 12:16 Dose 500 mls @ ud IV .STK-MED ONE Lab/Rad Data: Laboratory Result Diagrams 09/25/21 11:45 09/25/21 11:45 Laboratory Results 09/25/21 09/25/21 09/25/21 Range/Units 15:28 12:45 11:45 WBC (4.0-10.5) x10^3/uL RBC (4.1-5.6) x10^6/uL Hgb (12.5-18.0) g/dL Hct (42-50) % MCV (78-100) fL MCH (26-32) pg MCHC (32-36) g/dL RDW (11.5-14.0) % Plt Count (150-450) x10^3/uL MPV (7.5-11.0) fL Gran % (36.0-66.0) % Immature Gran % (Auto) (0.00-0.4) % Nucleat RBC Rel Count (0.00-0.1) % Eos # (Auto) (0-0.5) x10^3/uL Immature Gran # (Auto) (0.00-0.03) x10^3u/L Absolute Lymphs (auto) (1.0-4.6) x10^3/uL Absolute Monos (auto) (0.0-1.3) x10^3/uL Absolute Nucleated RBC (0.00-0.01) x10^3u/L Lymphocytes % (24.0-44.0) % Monocytes % (0.0-12.0) % Eosinophils % (0.00-5.0) % Basophils % (0.0-0.4) % Absolute Granulocytes (1.4-6.9) x10^3/uL Basophils # (0-0.4) x10^3/uL PT 11.2 (9.4-12.5) SECONDS INR 1.06 (0.8-3.0) D-Dimer 3.54 H* (0.0-0.50) mg/L Sodium (137-145) mmol/L Potassium (3.5-5.1) mmol/L Chloride (98-107) mmol/L Carbon Dioxide (22-30) mmol/L Anion Gap (5-15) MEQ/L BUN (9-20) mg/dL Creatinine (0.66-1.25) mg/dL Estimated GFR ML/MIN Glucose (74-106) mg/dL Calcium (8.4-10.2) mg/dL Magnesium (1.6-2.3) mg/dL Total Bilirubin (0.2-1.3) mg/dL AST (17-59) U/L ALT (0-50) U/L Alkaline Phosphatase (38-126) U/L Troponin I < 0.012 (0.000-0.034) ng/mL NT-Pro-B Natriuret Pep (0-900) pg/mL Serum Total Protein (6.3-8.2) g/dL Albumin (3.5-5.0) g/dL Urinalys Dipstick Clnc MAIN LAB Urine Color LT.YELLOW (YELLOW) Urine Appearance CLEAR (CLEAR) Urine pH 6.0 (5-6) Ur Specific [place] 1.015 (1.005-1.025) POC Urine Protein Conf NEGATIVE (Negative) Urine Ketones NEGATIVE (NEGATIVE) Urine Nitrite NEGATIVE (NEGATIVE) Urine Bilirubin NEGATIVE (NEGATIVE) Urine Urobilinogen 0.2 (0-1) mg/dL Urine Leukocytes NEGATIVE (NEGATIVE) Urine WBC (Auto) 0-2 (0-5) /HPF Urine RBC (Auto) NONE (0-2) /HPF U Epithel Cells (Auto) NONE (FEW) /HPF Urine Bacteria (Auto) NONE (NEGATIVE) /HPF Urine RBC NEGATIVE (0-5) Shane/ul Ur Culture Indicated? NO Urine Glucose NEGATIVE (NEGATIVE) mg/dL 09/25/21 09/25/21 Range/Units 11:45 11:45 WBC 9.8 (4.0-10.5) x10^3/uL RBC 4.97 (4.1-5.6) x10^6/uL Hgb 14.0 (12.5-18.0) g/dL Hct 43.8 (42-50) % MCV 88.1 (78-100) fL MCH 28.2 (26-32) pg MCHC 32.0 (32-36) g/dL RDW 14.8 H (11.5-14.0) % Plt Count 363 (150-450) x10^3/uL MPV 9.2 (7.5-11.0) fL Gran % 46.3 (36.0-66.0) % Immature Gran % (Auto) 0.5 H (0.00-0.4) % Nucleat RBC Rel Count 0.0 (0.00-0.1) % Eos # (Auto) 0.30 (0-0.5) x10^3/uL Immature Gran # (Auto) 0.05 H (0.00-0.03) x10^3u/L Absolute Lymphs (auto) 4.03 (1.0-4.6) x10^3/uL Absolute Monos (auto) 0.81 (0.0-1.3) x10^3/uL Absolute Nucleated RBC 0.00 (0.00-0.01) x10^3u/L Lymphocytes % 41.1 (24.0-44.0) % Monocytes % 8.3 (0.0-12.0) % Eosinophils % 3.1 (0.00-5.0) % Basophils % 0.7 (0.0-0.4) % Absolute Granulocytes 4.54 (1.4-6.9) x10^3/uL Basophils # 0.07 (0-0.4) x10^3/uL PT (9.4-12.5) SECONDS INR (0.8-3.0) D-Dimer (0.0-0.50) mg/L Sodium 133 L (137-145) mmol/L Potassium 4.9 (3.5-5.1) mmol/L Chloride 97 L (98-107) mmol/L Carbon Dioxide 27 (22-30) mmol/L Anion Gap 14.3 (5-15) MEQ/L BUN 17 (9-20) mg/dL Creatinine 1.52 H (0.66-1.25) mg/dL Estimated GFR 49.3 ML/MIN Glucose 126 H (74-106) mg/dL Calcium 9.2 (8.4-10.2) mg/dL Magnesium 2.1 (1.6-2.3) mg/dL Total Bilirubin 0.70 (0.2-1.3) mg/dL AST 31 (17-59) U/L ALT 17 (0-50) U/L Alkaline Phosphatase 85 (38-126) U/L Troponin I (0.000-0.034) ng/mL NT-Pro-B Natriuret Pep 492 (0-900) pg/mL Serum Total Protein 7.9 (6.3-8.2) g/dL Albumin 4.5 (3.5-5.0) g/dL Urinalys Dipstick Clnc Urine Color (YELLOW) Urine Appearance (CLEAR) Urine pH (5-6) Ur Specific [place] (1.005-1.025) POC Urine Protein Conf (Negative) Urine Ketones (NEGATIVE) Urine Nitrite (NEGATIVE) Urine Bilirubin (NEGATIVE) Urine Urobilinogen (0-1) mg/dL Urine Leukocytes (NEGATIVE) Urine WBC (Auto) (0-5) /HPF Urine RBC (Auto) (0-2) /HPF U Epithel Cells (Auto) (FEW) /HPF Urine Bacteria (Auto) (NEGATIVE) /HPF Urine RBC (0-5) Shane/ul Ur Culture Indicated? Urine Glucose (NEGATIVE) mg/dL - Progress Progress: improved Progress Note: 09/25/21 15:15 Patient states he is feeling much better. CT of the head without contrast shows nonacute senile brain with incidental remote lacunar infarcts of the left caudate and right thalamus. CTA of the chest shows no pulmonary embolus. There are no acute cardiopulmonary processes/findings. There are left upper and left lower lobe indeterminate noncalcified micronodules. These findings were discussed with the patient. Counseled pt/family regarding: lab results, diagnosis, need for follow-up, rad results - Departure Departure Disposition: Home Clinical Impression: Dizziness, Hypotension, Pulmonary nodules Condition: Stable Critical Care Time: No Referrals: DOCTOR,NO FAMILY [Primary Care Provider] - Follow up/PCP as directed Additional Instructions: Drink plenty of fluids. Hold your blood pressure medication until you speak with your prescribing doctor and make them aware that you were here and that there was an issue with low blood pressure. Call your prescribing doctor on the morning of 09/26/2021 for further evaluation and management of your blood pressure and the pulmonary nodules we discussed.
[2021-09-25] MEDS ORDERED: Sodium Chloride 0.9% W/ 20 mEq KCl/LITER 0 ML IV ONE (12:07)
[2021-09-25] MEDS ORDERED: Sodium Chloride 0.9% 1000 ML 0 ML ONE (12:08)
[2021-09-25 12:11] LABS: Absolute Neutrophil Ct (ANC) 4.54 x10^3/uL (1.4-6.9); Basophil (Absolute #) 0.07 x10^3/uL (0-0.4); Eosinophil % 3.1 % (0.00-5.0); Hematocrit 43.8 % (42-50); Lymphocyte (Absolute #) 4.03 x10^3/uL (1.0-4.6); Lymphocytes % 41.1 % (24.0-44.0); Mean Cell Volume 88.1 fL (78-100); Mean Corpuscular Hemoglobin 28.2 pg (26-32); Mean Platelet Volume 9.2 fL (7.5-11.0); Monocyte (Absolute #) 0.81 x10^3/uL (0.0-1.3); Monocytes % 8.3 % (0.0-12.0); Neutrophil % 46.3 % (36.0-66.0); Platelet Count 363 x10^3/uL (150-450); Red Blood Count 4.97 x10^6/uL (4.1-5.6); Red Cell Distribution Width 14.8 % (11.5-14.0); White Blood Count 9.8 x10^3/uL (4.0-10.5)
[2021-09-25] MEDS ORDERED: Sodium Chloride 0.9% 500 ML 500 ML IV ONE ×2 (12:12→12:15)
--- NOTE | 2021-09-25 12:25 | XRAY ---
Indication: Dizziness and loss of consciousness. No known injury. Multiple contiguous axial images obtained through the head without contrast. Comparison: None Age-appropriate global atrophy and minimal periventricular degenerative micro-ischemia bilaterally. Small remote lacunar infarct left caudate head and right thalamus. No acute intracranial hemorrhage, abnormal extra-axial fluid collection, or mass effect. Fourth ventricle is midline without hydrocephalus. Riggs-white matter differentiation preserved. Bony calvarium intact. Near complete opacification visualized right maxillary sinus. Impression: Nonacute senile brain with incidental remote lacunar infarcts left caudate and right thalamus. Right maxillary sinus disease.
[2021-09-25 12:30] LABS: ALBUMIN 4.5 g/dL (3.5-5.0); ANION GAP 14.3 MEQ/L (5-15); BILIRUBIN,TOTAL 0.7 mg/dL (0.2-1.3); Calcium 9.2 mg/dL (8.4-10.2); Creatinine 1 1.52 mg/dL (0.66-1.25); EST GLOMERULAR FILTRATION RATE 49.3 ML/MIN; INR 1.06 (0.8-3.0); MAGNESIUM 2.1 mg/dL (1.6-2.3); PROTIME 11.2 SECONDS (9.4-12.5); Potassium 4.9 mmol/L (3.5-5.1); Total Protein 7.9 g/dL (6.3-8.2)
[2021-09-25 12:32] LABS: D-DIMER QUANTITATIVE 3.54 mg/L (0.0-0.50)
--- NOTE | 2021-09-25 15:10 | XRAY ---
Indication: Hypertension and dizziness. Elevated d-dimer. Multiple contiguous axial images obtained through the chest using 80 cc Isovue 370 contrast and PE protocol. Comparison: None Good opacification of the pulmonary arteries to include the lobar and segmental branches. No pulmonary embolus. Heart is not enlarged with scattered coronary calcifications, CABG, and left AICD. Aorta moderately arteriosclerotic with left subclavian artery stent graft. No aneurysm/dissection. Small mediastinal and right hilar calcified nodes. No pathologic mediastinal/hilar lymphadenopathy. Lungs demonstrates mild pulmonary emphysema with mild biapical subpleural cystic changes. Moderate right and mild left dependent atelectasis. Peripheral left upper lobe demonstrates a 5 x 8 mm noncalcified nodule. Posterior left lower lobe demonstrates smaller 5 mm noncalcified peripheral nodule. No infiltrate or effusion. Bony thorax intact with remote L1 superior endplate fracture with approximately 50% height loss. Limited upper abdomen demonstrates mild fatty liver, 2.4 cm right adrenal adenoma, and a few splenic calcified granulomas. Impression: 1. Negative pulmonary embolus. No acute cardiopulmonary abnormalities. 2. Left upper and left lower lobe indeterminate noncalcified micronodules. Outside comparison studies recommended if available. If not, recommend follow-up per Fleischner guidelines. 3. Chronic findings including pulmonary emphysema, scattered fibrosis/scarring, arteriosclerotic disease, remote L1 fracture, fatty liver, right adrenal adenoma, and old granulomatous disease.
[2021-09-25 15:34] LABS: Appearance CLEAR (CLEAR); Bilirubin NEGATIVE (NEGATIVE); Glucose NEGATIVE (NEGATIVE); Ketones NEGATIVE (NEGATIVE); Specific Gravity 1.015 (1.005-1.025)
[2021-09-25 15:35] LABS: Dipstick done @ ? MAIN LAB; Nitrite NEGATIVE (NEGATIVE); Protein,Urine Dip NEGATIVE (Negative); RBC NEGATIVE Ery/ul (0-5); Urobilinogen 0.2 mg/dL (0-1)
[2021-09-25 15:37] LABS: WBC 0-2 /HPF (0-5)
[2021-09-25 15:40] LABS: Urine Cultured Indicated? NO
[2021-09-25 16:44] VITALS: BP 129/91; PULSE 70; O2SAT 97
== END 2021-09-25 16:48 | disposition home or self-care (01) ==
LOC: ED 11:35
DX: I95.9 Hypotension, unspecified (principal); R42 Dizziness and giddiness; R91.8 Other nonspecific abnormal finding of lung field; R61 Generalized hyperhidrosis; E78.5 Hyperlipidemia, unspecified; I10 Essential (primary) hypertension; J44.9 Chronic obstructive pulmonary disease, unspecified; Z72.0 Tobacco use; Z79.02 Long term (current) use of antithrombotics/antiplatelets; Z79.899 Other long term (current) drug therapy
CPT/HCPCS: 36000; 36415; 70450; 71260; 80053; 81015; 83735; 83880; 84484; 85025; 85379; 85610; 93005; 93041; 94760; 99284

== ENCOUNTER 2023-06-08 13:21 | Emergency (ER) | payer MEDICARE ==
[2023-06-08] MEDS ORDERED: NARCAN 2 MG/2 ML IV ONE (13:22)
--- NOTE | 2023-06-08 13:30 | ERPHSYRPT ---
- History of Present Illness Time Seen by Provider: 06/08/23 13:25 Source: family, EMS Exam Limitations: clinical condition Physician History: This is a 67-year-old white male patient who was brought emergently to the emergency department in the backseat of a cab of a truck secondary to no ambulance is available to transport patients to the emergency room facilities se condary to being unresponsive. The patient's daughter, the patient's provided additional, independent history because the patient is unresponsive. The patient woke up today somewhat irritated and anxious per family report. He did go to his sister's home where he began complaining of sudden onset of significant headache. At some point his blood pressure was taken and the readout was 180/111. Patient then suddenly became confused and then unresponsive. There were no ambulance is available to transport this patient. The call on the eye her and was overheard by a local small equipment operator who was not on the clock. He transported the patient to our facility in the backseat of a cab of a truck. Patient was unresponsive on arrival to the emergency department. His pupils were slightly dilated but equal but not reactive. He had slow spontaneous breaths with somewhat of a gagging sound and palpable pulse. He was not mottled. Patient has a history of gastroesophageal reflux disease, hyperte nsion, hyperlipidemia and coronary artery disease. He has a pacemaker in place and has had a four-vessel CABG in the past. In approximately 2001 or 2022 he had abdominal aortic aneurysm repair. Patient is on Plavix. Family states that he is compliant with his medication regimen. Family states they are is no history of fall or head injury. Timing/Duration: today Severity: severe Associated Symptoms: headaches, syncope Allergies/Adverse Reactions: codeine [Codeine] Allergy (Verified 06/08/23 13:41) phenobarbital Allergy (Verified 06/08/23 13:41) Home Medications: Carvedilol 3.125 mg [Coreg 3.125 MG] 6.25 tab PO BID 05/25/16 [History] Atorvastatin Calcium [Lipitor] 40 mg PO DAILY 05/19/18 [History] Clopidogrel Bisulfate [PLAVIX Tablet] 75 mg PO DAILY 09/25/21 [History] Isosorbide Mononitrate 30 mg [Imdur 30 MG] 1 ea DAILY 09/25/21 [History] PANTOPRAZOLE 40 mg Tablet [Protonix 40MG Tablet] 40 mg PO QAM 09/25/21 [History] Hx Tetanus, Diphtheria Vaccination/Date Given: Yes Hx Influenza Vaccination/Date Given: No Hx Pneumococcal Vaccination/Date Given: No Travel Risk - International Travel Have you traveled outside of the country in past 3 weeks: No - Emerging Infectious Disease Are you exhibiting symptoms associated with any current EIDs: No - Review of Systems Constitutional: No Symptoms Eyes: No Symptoms Ears, Nose, & Throat: No Symptoms Respiratory: No Symptoms Cardiac: No Symptoms Abdominal/Gastrointestinal: No Symptoms Genitourinary Symptoms: No Symptoms Musculoskeletal: No Symptoms Skin: No Symptoms Neurological: Headache (Initial at home headache with immediate confusion), Other (Unresponsive) Psychological: No Symptoms Endocrine: No Symptoms Hematologic/Lymphatic: No Symptoms Immunological/Allergic: No Symptoms - Past Medical History Pertinent Past Medical History: Yes Neurological History: TIA ENT History: No Pertinent History Cardiac History: Coronary Artery Disease, High Cholesterol, Hypertension, Myocardial Infarction ([place]) Respiratory History: COPD, Sleep Apnea Endocrine Medical History: No Pertinent History Musculoskeletal History: Degenerative Disk Disease GI Medical History: No Pertinent History History: No Pertinent History Psycho-Social History: Anxiety Male Reproductive Disorders: No Pertinent History Other Medical History: Pacer/Defib - Past Surgical History Past Surgical History: Yes Neuro Surgical History: No Pertinent History Cardiac: Cardiac Catheterization, Cardiac Stent, Internal Defibrillator, Pacemaker Respiratory: No Pertinent History Gastrointestinal: No Pertinent History Genitourinary: No Pertinent History Musculoskeletal: Orthopedic Surgery Male Surgical History: No Pertinent History Other Surgical History: 15 stents placed. Elbow surgery. Tonsillectomy. CABG - Social History Smoking Status: Current every day smoker How long have you smoked: years Exposure to second hand smoke: Yes Drug Use: none Patient Lives Alone: No - Nursing Vital Signs Nursing Vital Signs: Initial Vital Signs O2 Sat by Pulse Oximetry 100 06/08/23 13:39 Pain Scale Pain Intensity 0 - Physical Exam General Appearance: other (Patient unresponsive) Eye Exam: other (Bilateral pupils are equal but slightly dilated and not responsive to light) Ears, Nose, Throat Exam: normal ENT inspection, moist mucous membranes Neck Exam: normal inspection, non-tender, supple, full range of motion Respiratory Exam: normal breath sounds, lungs clear, other (Patient with slow respiratory rate and mild gagging sound with every other breath), No respiratory distress Cardiovascular Exam: regular rate/rhythm, normal heart sounds, normal peripheral pulses Gastrointestinal/Abdomen Exam: soft, normal bowel sounds, No tenderness Rectal Exam: not done Back Exam: normal inspection, normal range of motion, No CVA tenderness, No vertebral tenderness Extremity Exam: normal inspection, normal range of motion, pelvis stable Neurologic Exam: other (Patient unresponsive) Skin Exam: normal color, warm, dry Lymphatic Exam: No adenopathy SpO2 Interpretation: O2 applied, airway management int. O2 Delivery: Oxymask - Course Nursing assessment & vital signs reviewed: Yes EKG Interpreted by Me: RATE (83), Sinus Rhythm, NORMAL AXIS, NORMAL INTERVALS, NORMAL QRS, Other (No acute ischemic changes on today's twelve-lead EKG.) Ordered Tests: Active Orders 24 hr Category Date Time Status Machine Stone Polisher Apprentice STAT Care 06/08/23 13:33 Active Catheter-Clark Ramírez STAT Care 06/08/23 13:30 Completed EKG-ER Only STAT Care 06/08/23 13:30 Active Gastric Tube Insertion STAT Care 06/08/23 13:50 Active IV Insertion STAT Care 06/08/23 13:30 Active Pulse Oximetry (ED) STAT Care 06/08/23 13:30 Active CHEST 1 VIEW (PORTABLE) Stat Exams 06/08/23 13:48 Ordered HEAD WITHOUT CONTRAST [CT] Stat Exams 06/08/23 13:35 Ordered ABG [ARTERIAL BLOOD GASES] Stat Lab 06/08/23 14:23 Completed ARTERIAL BLOOD GASES Stat Lab 06/08/23 13:58 Completed CBC W DIFF Stat Lab 06/08/23 13:30 Completed CMP Stat Lab 06/08/23 13:30 Completed D-DIMER QUANTITATIVE Stat Lab 06/08/23 13:30 Completed NT PRO BNPII Stat Lab 06/08/23 13:30 Completed PROTIME WITH INR Stat Lab 06/08/23 13:30 Completed TROPONIN Q4H Lab 06/08/23 13:30 Received TROPONIN Q4H Lab 06/08/23 17:45 Ordered TROPONIN Q4H Lab 06/08/23 21:45 Ordered Urine Triage Profile Stat Lab 06/08/23 13:30 Completed VENOUS BLOOD GAS Stat Lab 06/08/23 13:58 Completed Intubation [Ventilator Management] STAT RT 06/08/23 15:56 Active Standby STAT RT 06/08/23 16:04 Active Medication Summary Generic Name Dose Route Start Last Admin Trade Name Lona PRN Reason Stop Dose Admin Sodium Chloride 1,000 mls @ 50 mls/hr 06/08/23 13:30 06/08/23 14:08 Sodium Chloride 0.9% 1000 Ml IV 07/08/23 13:29 50 mls/hr .Q20H ZACHARY Administration Midazolam HCl 50 mg/ Sodium 250 mls @ 8.25 mls/hr 06/08/23 13:50 06/08/23 14:09 Chloride IV 07/08/23 13:49 0.025 mg/kg/hr .Q24H PRN 8.25 mls/hr SEDATION Administration Protocol 0.025 MG/KG/HR Discontinued Medications Generic Name Dose Route Start Last Admin Trade Name Lona PRN Reason Stop Dose Admin Fentanyl Citrate Confirm 06/08/23 14:02 Fentanyl Citrate 100 Mcg/2 Ml* Vial Administered 06/08/23 14:03 Dose 100 mcg .ROUTE .STK-MED ONE Hydralazine HCl Confirm 06/08/23 13:33 Hydralazine Hcl 20 Mg/Ml Vial Administered 06/08/23 13:34 Dose 20 mg .ROUTE .STK-MED ONE Hydralazine HCl 10 mg 06/08/23 13:34 06/08/23 14:08 Hydralazine Hcl 20 Mg/Ml Vial IV 06/08/23 13:35 10 mg STAT ONE Administration Hydralazine HCl 10 mg 06/08/23 14:13 06/08/23 14:25 Hydralazine Hcl 20 Mg/Ml Vial IV 06/08/23 14:14 10 mg STAT ONE Administration Hydralazine HCl Confirm 06/08/23 14:12 Hydralazine Hcl 20 Mg/Ml Vial Administered 06/08/23 14:13 Dose 20 mg .ROUTE .STK-MED ONE Sodium Chloride Confirm 06/08/23 13:55 Sodium Chloride 0.9% 250 Ml Administered 06/08/23 13:56 Dose 250 mls @ ud IV .STK-MED ONE Sodium Chloride Confirm 06/08/23 14:02 Sodium Chloride 0.9% 1000 Ml Administered 06/08/23 14:03 Dose 1,000 mls @ ud .ROUTE .STK-MED ONE Labetalol HCl 10 mg 06/08/23 13:57 06/08/23 14:07 Labetalol Hcl 20 Mg/4 Ml Disp.Syringe IV 06/08/23 13:58 10 mg STAT ONE Administration Labetalol HCl Confirm 06/08/23 14:01 Labetalol Hcl 20 Mg/4 Ml Disp.Syringe Administered 06/08/23 14:02 Dose 20 mg IV .STK-MED ONE Midazolam HCl Confirm 06/08/23 13:55 Midazolam Hcl 50 Mg/10 Ml Vial Administered 06/08/23 13:56 Dose 50 mg .ROUTE .STK-MED ONE Naloxone HCl 2 mg 06/08/23 13:37 06/08/23 14:09 Naloxone Hcl 2mg/2 Ml 2 Mg/2 Ml Syr IV 06/08/23 13:38 2 mg STAT ONE Administration Naloxone HCl 2 mg 06/08/23 13:22 Naloxone Hcl 2mg/2 Ml 2 Mg/2 Ml Syr IV 06/08/23 13:23 .STK-MED ONE Ondansetron HCl 4 mg 06/08/23 13:30 06/08/23 14:09 Ondansetron Hcl 4 Mg/2 Ml Vial IV 06/08/23 13:31 4 mg STAT ONE Administration Lab/Rad Data: Laboratory Result Diagrams 06/08/23 13:30 06/08/23 13:30 Laboratory Results 06/08/23 06/08/23 06/08/23 Range/Units 14:23 13:58 13:50 WBC (4.0-10.5) x10^3/uL RBC (4.1-5.6) x10^6/uL Hgb (12.5-18.0) g/dL Hct (42-50) % MCV (78-100) fL MCH (26-32) pg MCHC (32-36) g/dL RDW (11.5-14.0) % Plt Count (150-450) x10^3/uL MPV (7.5-11.0) fL Gran % (36.0-66.0) % Immature Gran % (Auto) (0.00-0.4) % Nucleat RBC Rel Count (0.00-0.1) % Eos # (Auto) (0-0.5) x10^3/uL Immature Gran # (Auto) (0.00-0.03) x10^3u/L Absolute Lymphs (auto) (1.0-4.6) x10^3/uL Absolute Monos (auto) (0.0-1.3) x10^3/uL Absolute Nucleated RBC (0.00-0.01) x10^3u/L Lymphocytes % (24.0-44.0) % Monocytes % (0.0-12.0) % Eosinophils % (0.00-5.0) % Basophils % (0.0-0.4) % Absolute Granulocytes (1.4-6.9) x10^3/uL Basophils # (0-0.4) x10^3/uL PT (9.4-12.5) SECONDS INR (0.8-3.0) D-Dimer (0.0-0.50) mg/L Puncture Site RIGHT RADIAL LAC pCO2 45 39 (35-45) mmHg pO2 354 H* 50 L* (75-100) mmHg pO2/FiO2 Ratio 100.0 % Base Excess -3.0 L -1.8 (-2.0-2.0) O2 Saturation 97.7 79.6 L (94-100) g/dF ABG pH 7.32 L 7.38 (7.35-7.45) ABG HCO3 23.2 23.1 (22-28) ABG O2 Sat (Measured) 100.0 82.9 L (95-100) % Constantin Test YES NOT APPLICABLE VBG pH 7.38 (7.32-7.42) VBG pCO2 at Pat Temp 39 L (42-55) mm/Hg VBG pO2 at Pat Temp 50 H (25-40) mm/Hg VBG HCO3 23.1 (22-28) meq/L VBG O2 Sat (Dinorah) 82.9 L (95-100) VBG Base Excess -1.8 (-2.0-2.0) VBG Hemoglobin 12.6 VBG Carboxyhemoglobin 3.4 (0.0-6.9) % T HGB A-a Gradient 303 614 a/A Ratio 0.54 0.08 Hemoglobin 13.0 12.6 Carboxyhemoglobin 1.6 3.4 (0.0-6.9) % THgb Methemoglobin 0.8 L 0.6 L (1.4-1.5) % POC Potassium 4.5 (3.5-5.1) Temperature 37.0 37.0 C POC O2 Flow Rate 100 100 % Vent Mode A/C Tidal Volume 500 cc PEEP 5.0 cmH2O Sodium (135-145) mmol/L Potassium 3.9 4.5 (3.5-5.1) mmol/L Chloride (98-107) mmol/L Carbon Dioxide (22-30) mmol/L Anion Gap (5-15) MEQ/L BUN (9-20) mg/dL Creatinine (0.66-1.25) mg/dL Estimated GFR ML/MIN Glucose (74-106) mg/dL Calcium (8.4-10.2) mg/dL Total Bilirubin (0.2-1.3) mg/dL AST (17-59) U/L ALT (0-50) U/L Alkaline Phosphatase (38-126) U/L NT-Pro-B Natriuret Pep (<300) pg/mL Serum Total Protein (6.3-8.2) g/dL Albumin (3.5-5.0) g/dL Urine Opiates Level (NEGATIVE) Ur Methadone (NEGATIVE) Urine Barbiturates (NEGATIVE) Ur Phencyclidine (PCP) (NEGATIVE) Urine Amphetamine (NEGATIVE) U Benzodiazepine Level (NEGATIVE) Urine Cocaine (NEGATIVE) Urine Marijuana (THC) (NEGATIVE) Influenza Type A Ag NEGATIVE (NEGATIVE) Influenza Type B Ag NEGATIVE (NEGATIVE) RSV (PCR) NEGATIVE (NEGATIVE) SARS-CoV-2 (PCR) NEGATIVE (NEGATIVE) Slides for Path Review 06/08/23 06/08/23 06/08/23 Range/Units 13:30 13:30 13:30 WBC (4.0-10.5) x10^3/uL RBC (4.1-5.6) x10^6/uL Hgb (12.5-18.0) g/dL Hct (42-50) % MCV (78-100) fL MCH (26-32) pg MCHC (32-36) g/dL RDW (11.5-14.0) % Plt Count (150-450) x10^3/uL MPV (7.5-11.0) fL Gran % (36.0-66.0) % Immature Gran % (Auto) (0.00-0.4) % Nucleat RBC Rel Count (0.00-0.1) % Eos # (Auto) (0-0.5) x10^3/uL Immature Gran # (Auto) (0.00-0.03) x10^3u/L Absolute Lymphs (auto) (1.0-4.6) x10^3/uL Absolute Monos (auto) (0.0-1.3) x10^3/uL Absolute Nucleated RBC (0.00-0.01) x10^3u/L Lymphocytes % (24.0-44.0) % Monocytes % (0.0-12.0) % Eosinophils % (0.00-5.0) % Basophils % (0.0-0.4) % Absolute Granulocytes (1.4-6.9) x10^3/uL Basophils # (0-0.4) x10^3/uL PT 10.9 (9.4-12.5) SECONDS INR 1.00 (0.8-3.0) D-Dimer 3.42 H* (0.0-0.50) mg/L Puncture Site pCO2 (35-45) mmHg pO2 (75-100) mmHg pO2/FiO2 Ratio % Base Excess (-2.0-2.0) O2 Saturation (94-100) g/dF ABG pH (7.35-7.45) ABG HCO3 (22-28) ABG O2 Sat (Measured) (95-100) % Constantin Test VBG pH (7.32-7.42) VBG pCO2 at Pat Temp (42-55) mm/Hg VBG pO2 at Pat Temp (25-40) mm/Hg VBG HCO3 (22-28) meq/L VBG O2 Sat (Dinorah) (95-100) VBG Base Excess (-2.0-2.0) VBG Hemoglobin VBG Carboxyhemoglobin (0.0-6.9) % T HGB A-a Gradient a/A Ratio Hemoglobin Carboxyhemoglobin (0.0-6.9) % THgb Methemoglobin (1.4-1.5) % POC Potassium (3.5-5.1) Temperature C POC O2 Flow Rate % Vent Mode Tidal Volume cc PEEP cmH2O Sodium 134 L (135-145) mmol/L Potassium 4.5 (3.5-5.1) mmol/L Chloride 102 (98-107) mmol/L Carbon Dioxide 21 L (22-30) mmol/L Anion Gap 15.7 H (5-15) MEQ/L BUN 17 (9-20) mg/dL Creatinine 1.18 (0.66-1.25) mg/dL Estimated GFR 68.1 ML/MIN Glucose 137 H (74-106) mg/dL Calcium 9.2 (8.4-10.2) mg/dL Total Bilirubin 0.70 (0.2-1.3) mg/dL AST 22 (17-59) U/L ALT 13 (0-50) U/L Alkaline Phosphatase 81 (38-126) U/L NT-Pro-B Natriuret Pep 450 (<300) pg/mL Serum Total Protein 8.0 (6.3-8.2) g/dL Albumin 4.3 (3.5-5.0) g/dL Urine Opiates Level NEGATIVE (NEGATIVE) Ur Methadone NEGATIVE (NEGATIVE) Urine Barbiturates NEGATIVE (NEGATIVE) Ur Phencyclidine (PCP) NEGATIVE (NEGATIVE) Urine Amphetamine NEGATIVE (NEGATIVE) U Benzodiazepine Level POSITIVE A (NEGATIVE) Urine Cocaine NEGATIVE (NEGATIVE) Urine Marijuana (THC) POSITIVE A (NEGATIVE) Influenza Type A Ag (NEGATIVE) Influenza Type B Ag (NEGATIVE) RSV (PCR) (NEGATIVE) SARS-CoV-2 (PCR) (NEGATIVE) Slides for Path Review 06/08/23 Range/Units 13:30 WBC 12.7 H (4.0-10.5) x10^3/uL RBC 4.95 (4.1-5.6) x10^6/uL Hgb 12.4 L (12.5-18.0) g/dL Hct 38.8 L (42-50) % MCV 78.4 (78-100) fL MCH 25.1 L (26-32) pg MCHC 32.0 (32-36) g/dL RDW 15.9 H (11.5-14.0) % Plt Count 363 (150-450) x10^3/uL MPV 9.0 (7.5-11.0) fL Gran % 49.0 (36.0-66.0) % Immature Gran % (Auto) 0.4 (0.00-0.4) % Nucleat RBC Rel Count 0.0 (0.00-0.1) % Eos # (Auto) 0.25 (0-0.5) x10^3/uL Immature Gran # (Auto) 0.05 H (0.00-0.03) x10^3u/L Absolute Lymphs (auto) 5.04 H (1.0-4.6) x10^3/uL Absolute Monos (auto) 1.07 (0.0-1.3) x10^3/uL Absolute Nucleated RBC 0.00 (0.00-0.01) x10^3u/L Lymphocytes % 39.7 (24.0-44.0) % Monocytes % 8.4 (0.0-12.0) % Eosinophils % 2.0 (0.00-5.0) % Basophils % 0.5 (0.0-0.4) % Absolute Granulocytes 6.21 (1.4-6.9) x10^3/uL Basophils # 0.06 (0-0.4) x10^3/uL PT (9.4-12.5) SECONDS INR (0.8-3.0) D-Dimer (0.0-0.50) mg/L Puncture Site pCO2 (35-45) mmHg pO2 (75-100) mmHg pO2/FiO2 Ratio % Base Excess (-2.0-2.0) O2 Saturation (94-100) g/dF ABG pH (7.35-7.45) ABG HCO3 (22-28) ABG O2 Sat (Measured) (95-100) % Constantin Test VBG pH (7.32-7.42) VBG pCO2 at Pat Temp (42-55) mm/Hg VBG pO2 at Pat Temp (25-40) mm/Hg VBG HCO3 (22-28) meq/L VBG O2 Sat (Dinorah) (95-100) VBG Base Excess (-2.0-2.0) VBG Hemoglobin VBG Carboxyhemoglobin (0.0-6.9) % T HGB A-a Gradient a/A Ratio Hemoglobin Carboxyhemoglobin (0.0-6.9) % THgb Methemoglobin (1.4-1.5) % POC Potassium (3.5-5.1) Temperature C POC O2 Flow Rate % Vent Mode Tidal Volume cc PEEP cmH2O Sodium (135-145) mmol/L Potassium (3.5-5.1) mmol/L Chloride (98-107) mmol/L Carbon Dioxide (22-30) mmol/L Anion Gap (5-15) MEQ/L BUN (9-20) mg/dL Creatinine (0.66-1.25) mg/dL Estimated GFR ML/MIN Glucose (74-106) mg/dL Calcium (8.4-10.2) mg/dL Total Bilirubin (0.2-1.3) mg/dL AST (17-59) U/L ALT (0-50) U/L Alkaline Phosphatase (38-126) U/L NT-Pro-B Natriuret Pep (<300) pg/mL Serum Total Protein (6.3-8.2) g/dL Albumin (3.5-5.0) g/dL Urine Opiates Level (NEGATIVE) Ur Methadone (NEGATIVE) Urine Barbiturates (NEGATIVE) Ur Phencyclidine (PCP) (NEGATIVE) Urine Amphetamine (NEGATIVE) U Benzodiazepine Level (NEGATIVE) Urine Cocaine (NEGATIVE) Urine Marijuana (THC) (NEGATIVE) Influenza Type A Ag (NEGATIVE) Influenza Type B Ag (NEGATIVE) RSV (PCR) (NEGATIVE) SARS-CoV-2 (PCR) (NEGATIVE) Slides for Path Review YES - Progress Progress: improved, re-examined Progress Note: 06/08/23 14:14 My medical decision making and the assignment of high level complexity this patient's medical issues based on review of the patient's past medical history the patient's medication list, review the patient drug allergy list, history of present illness and physical findings on examination. This is a critical patient. 2 intravenous lines are placed, patient arrives without oxygen or intravenous lines. No ambulance was available to transport this patient to our facility. We are ordering a stat CT scan of the head, we provided the patient with Narcan on arrival intravenously, hydralazine 10 mg intravenously on arrival since his systolic blood pressure was approximately 220 mmHg, Ramírez catheter was placed, CBC, CMP, PT/INR, urinalysis, urine drug screen. Patient will be orotracheally intubated and sedated. Stat CT scan of the head read by the radiologist states a large right basal ganglia hematoma with intraventricular extension and active hydrocephalus. There is midline shift and subfalcine herniation. I have spoken with the patient's daughter and patient's spouse as well as other family members and reviewed the current condition of the patient, discussed our interventions and the plan for intubation/RSI as well as transferring this patient to [facility] for neurosurgical/neurology management intervention. I interpreted the post orotracheal intubation chest x-ray. The ET tube is within the trachea above the john. There is ? Left perihilar infiltrate versus edema 06/08/23 14:53 I interpreted the patient's laboratory data results including the arterial blood gas. I spoke with Dr. Canas, the neurosurgeon out of [facility]. He reviewed the CT scan of the head results that were sent to the cloud. Per Dr. Canas, the patient has a nonsurvivable, acute medical issue. He recommends comfort care only. He did state that he would accept the patient in transfer. However, the family needs to be aware that no intervention would be offered other than comfort care. I spoke with the patient's spouse and the patient's daughter and relayed the information and recommendation I received from the neurosurgeon. They have opted to have the patient be extubated and comfort care/measures only. Patient will be made a DO NOT RESUSCITATE patient. I will contact telehospitalist for placement in observation. 06/08/23 16:34 After terminal extubation, the patient quickly . Patient at 1606. Patient had no spontaneous breaths, no palpable pulse, the pupils were fixed and dilated, there were no spontaneous heart tones. Family was at bedside. Counseled pt/family regarding: lab results, diagnosis, rad results Medical Desision Making - Independent Historian Additional History obtained from: Family - Discussion of managment Care discussed with:: specialist (Neurosurgeon at [facility]-Dr. Canas) Reviewed:: Test results - Diagnostic Testing Diagnostic test were ordered, analyzed, and reviewed by me: Yes Radiological Interpretation: Interpreted by me, Reviewed by me, Teleradiologist Report - Risk of complications The pt has a high risk of morbidity or mortality based on: Decision regarding hospitilization or escalation of hosp level of care - Departure Departure Disposition: Clinical Impression: Unresponsive state, Intracranial hematoma, Hydrocephalus, Midline shift of brain, Intracranial herniation Condition: Critical Care Time: Yes Critical Care Time(excluding separately billable procedures): Critical 30-74 mins (60) Referrals: DOCTOR,NO FAMILY [Primary Care Provider] - Follow up/PCP as directed
[2023-06-08] MEDS ORDERED: APRESOLINE 20 MG/ML INJ ONE ×2 (13:33→14:12)
[2023-06-08 13:39] LABS: Absolute Neutrophil Ct (ANC) 6.21 x10^3/uL (1.4-6.9); BASOPHIL % 0.5 % (0.0-0.4); Basophil (Absolute #) 0.06 x10^3/uL (0-0.4); Eosinophil (Absolute #) 0.25 x10^3/uL (0-0.5); Hematocrit 38.8 % (42-50); Hemoglobin 12.4 g/dL (12.5-18.0); IMMATURE GRAN # 0.05 x10^3u/L (0.00-0.03); IMMATURE GRAN % 0.4 % (0.00-0.4); Lymphocyte (Absolute #) 5.04 x10^3/uL (1.0-4.6); Lymphocytes % 39.7 % (24.0-44.0); Mean Cell Volume 78.4 fL (78-100); Mean Corpuscular Hemoglobin 25.1 pg (26-32); Monocyte (Absolute #) 1.07 x10^3/uL (0.0-1.3); Monocytes % 8.4 % (0.0-12.0); Platelet Count 363 x10^3/uL (150-450); Red Blood Count 4.95 x10^6/uL (4.1-5.6); Red Cell Distribution Width 15.9 % (11.5-14.0); White Blood Count 12.7 x10^3/uL (4.0-10.5)
[2023-06-08] MEDS ORDERED: Versed 50 MG/ 10 Ml MDV ONE (13:55)
[2023-06-08] MEDS ORDERED: Sodium Chloride 0.9% 250 ML 250 ML IV ONE (13:55)
[2023-06-08] MEDS ORDERED: TRANDATE 20 MG/4 ML SYRINGE IV ONE (14:01)
[2023-06-08] MEDS ORDERED: Sodium Chloride 0.9% 1000 ML 1,000 ML ONE (14:02)
[2023-06-08] MEDS ORDERED: SUBLIMAZE 100 MCG/2 ML ONE (14:02)
[2023-06-08 14:04] LABS: Amphetamine,Urine NEGATIVE (NEGATIVE); Barbiturate,Urine NEGATIVE (NEGATIVE); Benzodiazepine,Urine POSITIVE (NEGATIVE); Cocaine,Urine NEGATIVE (NEGATIVE); Methadone,Urine NEGATIVE (NEGATIVE); Opiate,Urine NEGATIVE (NEGATIVE); PCP,Urine NEGATIVE (NEGATIVE); PROTIME 10.9 SECONDS (9.4-12.5); THC,Urine POSITIVE (NEGATIVE)
[2023-06-08 14:05] LABS: D-DIMER QUANTITATIVE 3.42 mg/L (0.0-0.50)
[2023-06-08] MEDS: TRANDATE 20 MG/4 ML SYRINGE IV ONE (14:07)
[2023-06-08] MEDS: APRESOLINE 20 MG/ML INJ IV ONE ×2 (14:08→14:25)
[2023-06-08] MEDS: Sodium Chloride 0.9% 1000 ML 1,000 ML IV SCH (14:08)
[2023-06-08 14:09] LABS: ALBUMIN 4.3 g/dL (3.5-5.0); ANION GAP 15.7 MEQ/L (5-15); BILIRUBIN,TOTAL 0.7 mg/dL (0.2-1.3); Calcium 9.2 mg/dL (8.4-10.2); Creatinine 1 1.18 mg/dL (0.66-1.25); EST GLOMERULAR FILTRATION RATE 68.1 ML/MIN; Potassium 4.5 mmol/L (3.5-5.1)
[2023-06-08] MEDS: Zofran 4 MG/2 ML VIAL IV ONE (14:09)
[2023-06-08] MEDS: Versed 50 MG/ 10 Ml MDV*** 50 MG in Sodium Chloride 0.9% 250 ML 240 ML IV PRN (14:09)
[2023-06-08] MEDS: NARCAN 2 MG/2 ML IV ONE (14:09)
[2023-06-08 14:19] LABS: A-aADO2 614; ABG HEMOGLOBIN 12.6; ABG POTASSIUM 4.5 (3.5-5.1); ARTERIAL BLD GAS O2 SATURATION 82.9 % (95-100); ARTERIAL BLOOD GAS BASE EXCESS -1.8 (-2.0-2.0); ARTERIAL BLOOD GAS FIO2 100 %; ARTERIAL BLOOD GAS PCO2 39 mmHg (35-45); ARTERIAL BLOOD GAS pH 7.38 (7.35-7.45); CARBOXYHEMOGLOBIN 3.4 % THgb (0.0-6.9); HCO3- 23.1 (22-28); HGB O2 SAT 79.6 g/dF (94-100); Methhemoglobin 0.6 % (1.4-1.5); VBG BASE EXCESS -1.8 (-2.0-2.0); VBG CARBOXYHEMOGLOBIN 3.4 % T HGB (0.0-6.9); VBG HCO3- 23.1 meq/L (22-28); VBG HEMOGLOBIN 12.6; VBG O2 SATURATION 82.9 (95-100); VBG PCO2 39 mm/Hg (42-55); VBG PO2 50 mm/Hg (25-40); VBG POTASSIUM 4.5 (3.5-5.1); VBG pH 7.38 (7.32-7.42); paO2 pAO1 0.08
[2023-06-08 14:20] LABS: ARTERIAL BLOOD GAS PO2 50 mmHg (75-100)
[2023-06-08 14:21] LABS: ABG SITE LAC
[2023-06-08 14:25] LABS: A-aADO2 303; ABG POTASSIUM 3.9 (3.5-5.1); ARTERIAL BLD GAS TIDAL VOLUME 500 cc; ARTERIAL BLOOD GAS FIO2 100 %; ARTERIAL BLOOD GAS PCO2 45 mmHg (35-45); ARTERIAL BLOOD GAS PO2 354 mmHg (75-100); ARTERIAL BLOOD GAS VENT MODE A/C; ARTERIAL BLOOD GAS pH 7.32 (7.35-7.45); CARBOXYHEMOGLOBIN 1.6 % THgb (0.0-6.9); HCO3- 23.2 (22-28); HGB O2 SAT 97.7 g/dF (94-100); Methhemoglobin 0.8 % (1.4-1.5); paO2 pAO1 0.54
[2023-06-08 14:26] LABS: ABG SITE RIGHT RADIAL; ALLEN TEST OK? YES
[2023-06-08 14:31] LABS: INFLUENZA A NEGATIVE (NEGATIVE); INFLUENZA B NEGATIVE (NEGATIVE); RESPIRATORY SYNCTIAL VIRUS NEGATIVE (NEGATIVE); SARS-CoV-2 Xpert Express NEGATIVE (NEGATIVE)
[2023-06-08 14:52] LABS: Slide Review 1 YES
[2023-06-08 15:56] VITALS: BP 199/100
[2023-06-08 16:08] VITALS: PULSE 98; RESP 26; O2SAT 58
--- NOTE | 2023-06-08 20:38 | XRAY ---
Indication: Endotracheal tube placement. Comparison: May 19, 2018 Portable chest demonstrates new endotracheal tube tip approximately 5 cm above john. New left mid to lower lung hazy interstitial alveolar opacities without consolidation/large effusion. Remaining heart and right lung unremarkable again with CABG and left AICD. Bony thorax intact.
--- NOTE | 2023-06-10 09:11 | XRAY ---
CLINICAL HISTORY: Unresponsive; hypertension COMPARISON: None. TECHNIQUE: CT scan of the brain without IV contrast, with coronal and sagittal reconstruction FINDINGS: A large intracerebral acute hematoma was noted at the right basal ganglia measuring 7.2x6.2 x 5.1cm surrounded with vasogenic edema. Compressing the ipsilateral lateral ventricle at the frontal horn and body of the ventricle. There is extensive intraventricular hemorrhagic extension to the lateral, third, and fourth ventricles with ventricular dilatation and extension to foramen of Luschca and Maggendie. Periventricular trans ependymal CSF seepage was noted suggesting active hydrocephalus. Significant midline shift noted, 7 mm to the left, with subfalcine herniation. Normal CT appearance of the posterior fossa structures namely the cerebellar hemispheres, brainstem and cerebellar peduncles. The IACs are unremarkable. The cerebello-pontine angles are clear. The pituitary gland, the pineal gland, the optic chiasm is unremarkable. The osseous structures in the skull base are unremarkable. No definite calvarium fractures. Scanned paranasal sinuses are clear. IMPRESSION: A large right basal ganglia hematoma, with intraventricular extension and active hydrocephalus. Midline shift and subfalcine herniation. Urgent neurosurgical consultation advised. ER was called at [phone] at 01:07 PM BRUSHING OPERATOR, and the results were communicated to Dev Gusman. Electronically Signed by: Coleen Kohli MD. (06/08/2023 14:09:07 EDT)
== END 2023-06-08 20:44 | disposition expired ==
LOC: ED 13:21
DX: I61.8 Other nontraumatic intracerebral hemorrhage (principal); R40.2A Nontraumatic coma due to underlying condition; G93.5 Compression of brain; G91.9 Hydrocephalus, unspecified; I10 Essential (primary) hypertension
CPT/HCPCS: 0241U; 31500; 36000; 36415; 36600; 51702; 70450; 71045; 80053; 80307; 82375; 82803; 82805; 83880; 84484; 85025; 85379; 85610; 93005; 93041; 94002; 94760; 94799; 96374; 96375; 96376; 99285; 99291; J0360; J2250; J2310; J2405; J3010